=== PATIENT | female | born 1955 | race Caucasian/White ===

== ENCOUNTER 2021-07-06 09:04 | Day surgery (SDC) | payer OTHER, SELFPAY ==
[~2021-07-06] VITALS: Ht 160 cm; Wt 65.3 kg
[2021-07-06] MEDS ORDERED: MIDAZOLAM 5 MG/5 ML VIAL ONE (12:40)
[2021-07-06] MEDS ORDERED: fentaNYL citrate 0.05 MG/ML VIAL ONE (12:41)
[2021-07-06] MEDS ORDERED: MIDAZOLAM 2 MG/2 ML VIAL IVP ONE (12:50)
== END 2021-07-06 13:53 | disposition home or self-care (01) ==
LOC: MDS 09:04 → MMU 09:27 → MDS 13:53
PROVIDERS: ATTEND Internal Medicine Gastroenterology
DX: K21.9 Gastro-esophageal reflux disease without esophagitis (principal); R68.81 Early satiety; I10 Essential (primary) hypertension; K31.7 Polyp of stomach and duodenum; Z79.82 Long term (current) use of aspirin; Z79.899 Other long term (current) drug therapy; Z20.822 Contact with and (suspected) exposure to COVID-19
CPT/HCPCS: 88305; 88312; 88313; 88342; J2250; J3010